=== PATIENT | female | born 1985 | race Caucasian/White ===

== ENCOUNTER 2018-03-31 09:48 | Outpatient (CLI) | payer OTHER | END 2018-03-31 10:12 | disposition home or self-care (01) | LOC: NST 09:48 | DX: Z34.83 Encounter for supervision of other normal pregnancy, third trimester (principal) ==

== ENCOUNTER 2018-04-08 03:39 | Inpatient (IN) | payer OTHER ==
[~2018-04-08] VITALS: Ht 157.5 cm; Wt 2.7 kg
[2018-04-08] MEDS ORDERED: PRENATAL TABLE1 EAC1 PO (05:21)
[2018-04-08] MEDS ORDERED: STRESS FORMULA1 EAC2 PO (05:22)
== END 2018-04-10 11:02 | disposition home or self-care (01) | DRG 766 ==
LOC: OB/GYN 03:39 → LDR 03:39 → O/R 14:29 → OB/GYN 18:25
PROVIDERS: Obstetrics & Gynecology
PROC: 0UL70ZZ Occlusion of Bilateral Fallopian Tubes, Open Approach (ICD-10-PCS; 2018-04-08)
PROC: 4A033R1 Measurement of Arterial Saturation, Peripheral, Percutaneous Approach (ICD-10-PCS; 2018-04-08)
PROC: 4A1HXCZ Monitoring of Products of Conception, Cardiac Rate, External Approach (ICD-10-PCS; 2018-04-08)
PROC: 10D00Z1 Extraction of Products of Conception, Low, Open Approach (ICD-10-PCS; principal; 2018-04-08 13:15)
DX: O34.211 Maternal care for low transverse scar from previous cesarean delivery (principal); O24.420 Gestational diabetes mellitus in childbirth, diet controlled; Z3A.38 38 weeks gestation of pregnancy; Z37.0 Single live birth; Z30.2 Encounter for sterilization